=== PATIENT | female | born 1980 | race Caucasian/White ===

== ENCOUNTER → 2022-05-21 11:46 | Outpatient (BNVA) | payer MEDICAID, SELFPAY | PROVIDERS: Visit Provider Nurse Practitioner Family | DX: J02.8 Acute pharyngitis due to other specified organisms (principal); B96.89 Other specified bacterial agents as the cause of diseases classified elsewhere | CPT/HCPCS: 87071; 87880 ==

== ENCOUNTER → 2022-07-02 15:38 | Outpatient (BNVA) | payer MEDICAID, SELFPAY | PROVIDERS: Visit Provider Family Medicine | DX: R53.83 Other fatigue (principal); E61.1 Iron deficiency; Z13.6 Encounter for screening for cardiovascular disorders; G47.10 Hypersomnia, unspecified; R06.83 Snoring | CPT/HCPCS: 80053; 80061; 83540; 84443; 85025 ==

== ENCOUNTER 2022-07-23 10:11 | Outpatient (CLI) | payer MEDICAID, SELFPAY ==
--- NOTE | 2022-07-23 10:30 | FL_ITS ---
WS: [id number] MODIFIED BARIUM SWALLOW HISTORY: R13.10 - Dysphagia, unspecified FLUOROSCOPY TIME: 1min [id number] # of spot films: [id number] Modified barium swallow was performed by the speech pathologist. Fluoroscopy was provided with the pa tient in a lateral projection. Multiple food consistencies were provided. Patient swallowed all food consistencies without difficulty. No aspiration or laryngeal penetration i s evident. There is mild delay in initiation of swallowing. No significant pharyngeal coating. The ba rium tablet was swallowed without difficulty. FL/FL barium swallow modifd 20023 IMPRESSION: 1. No aspiration or laryngeal penetration. 2. Very slight delay initiating swallowing mechanism. Please see speech therapist report also for recommendations.
== END 2022-07-23 10:12 | disposition home or self-care (01) ==
PROVIDERS: PCP Family Medicine; Visit Provider Family Medicine
DX: R13.10 Dysphagia, unspecified (principal); K21.9 Gastro-esophageal reflux disease without esophagitis
CPT/HCPCS: 74230; 92611

== ENCOUNTER 2022-10-10 20:00 | Outpatient (CLI) | payer MEDICAID, SELFPAY | END 2022-10-10 20:01 | disposition home or self-care (01) | LOC: SLEEP 10-11 06:13 | PROVIDERS: PCP Family Medicine; Visit Provider Family Medicine | DX: G47.10 Hypersomnia, unspecified (principal); R06.83 Snoring | CPT/HCPCS: 95810 ==

== ENCOUNTER 2022-10-25 09:18 | Day surgery (SDC) | payer MEDICAID, SELFPAY ==
[2022-10-24 08:51] VITALS: BMI 24.9
[2022-10-25 09:35] VITALS: BP 108/55; PULSE 66; RESP 16; TEMP 36.3; O2SAT 98
[2022-10-25] MEDS: sodium chloride 0.9% 1,000 ML 30 ML IV (09:41)
[2022-10-25 09:46] LABS: OR HCG Qualitative Urine Negative (Negative)
--- NOTE | 2022-10-25 10:23 | W.PM.OPSUD ---
Surgery/Procedure H&P Update DATE OF PROCEDURE: October 25, 2022 DATE H&P PERFORMED: 10/07/22 H&P UPDATE INFORMATION: I have reviewed H&P completed within last 30 days, I have examined patient prior to procedure, No changes to prior documentation and H&P is in [facility] on date indicated PLANNED PROCEDURE: Operation Date: 10/25/22 10:20 Proposed Procedures p EGD 52634,R13.10,K21.9(Not Applicable) - Richard Weaver MD
--- NOTE | 2022-10-25 10:26 | ANES.PREANE2 ---
Pre-Anesthetic Assessment Height/Weight: Height 1.63 m Weight 65.771 kg Temp Pulse Resp BP Pulse Ox O2 Del Method 97.3 F L 66 16 108/55 98 Room Air 10/25/22 09:35 10/25/22 09:35 10/25/22 09:35 10/25/22 09:35 10/25/22 09:35 10/25/22 09:35 Operation Date: 10/25/22 10:20 Proposed Procedures p EGD 69174,R13.10,K21.9(Not Applicable) - Richard Weaver MD Was Beta Marybel taken within 24 hours: N/A Was Clonidine taken within 24 hours: N/A Last intake: Intake Last Liquid Date 10/24/22 Last Liquid Time 22:00 Last Solid Date 10/24/22 Last Solid Time 21:00 Social No alcohol and No tobacco Exam alert and oriented x 3 Airway Submandibular: within normal limits Cervical ROM: within normal limits Mallampati: Class II Dentition: chipped Comments: Comments: front incisor History/ROS No significant history except as noted Pulmonary None reported CV/HEM None reported None reported Hepatic None reported GI Gastroesophageal Reflux Disease Metabolic None reported Musc/skel None reported Neuropsych Anxiety and Depression Anesthetic Plan ASA status: 2 Anesthesia: Anesthesia Evaluation and MAC Risk of > 500 ml blood loss (7ml/kg in children): No Medications/Allergies Home Medications Medication Instructions Recorded Confirmed Last Taken Type dextroamphetamine-amphetamine 10 10 mg PO BID 30 days #60 tabs 10/22/22 10/25/22 10/24/22 Rx mg tablet (Adderall) duloxetine 30 mg capsule,delayed 30 mg PO DAILY 30 days #30 caps 10/22/22 10/25/22 10/24/22 Rx release duloxetine 60 mg capsule,delayed 60 mg PO DAILY 30 days #30 caps 10/22/22 10/25/22 10/24/22 Rx release zolpidem 5 mg tablet 5 mg PO .qhs 30 days #30 tabs 10/22/22 10/25/22 10/24/22 Rx Allergy Relief (cetirizine) 10 mg PO DAILY 10/24/22 10/25/22 10/24/22 History Allergies Allergy/AdvReac Type Severity Reaction Status Date / Time No Known Allergies Allergy Verified 10/25/22 09:28 Current Medications Generic Name Dose Route Start Last Admin Trade Name Freq PRN Reason Stop Dose Admin Sodium Chloride 1,000 mls @ 30 mls/hr 10/25/22 09:30 10/25/22 09:41 Sodium Chloride 0.9% IV 30 mls/hr .Q24H HOLLIS Administration PFSH Anesthesia Medical History (Updated 10/22/22 @ 08:36 by Hortensia Atkins MD) Insomnia Psychiatric care Surgical History (Updated 10/15/22 @ 13:49 by Farnaz Bower MD) Hx of section Hx of spinal fusion Family History Father Cancer prostate, skin, luekemia Hypertension Sister Clotting disorder lupus Stroke Denies family history of Diabetes Chronic kidney disease (CKD) Bleeding disorder Thyroid disease Female Reproductive History Date of last menstrual period: 10/20/22 Data Anesthesia Cardiac Studies: No Data to Display
[2022-10-25 11:00] VITALS: BP 95/63; PULSE 87; RESP 16; TEMP 36.1; O2SAT 97
[2022-10-25 11:31] VITALS: BP 97/62; PULSE 84; RESP 18; O2SAT 99
--- NOTE | 2022-10-25 15:08 | ANE.PACU2 ---
Inpatient post-anesthesia follow up: Airway intact: Yes Vital signs: Temperature 97.0 F Pulse Rate 84 Respiratory Rate 18 Blood Pressure 97/62 Pulse Oximetry 99 Oxygen Delivery Me thod Room Air Oxygen Flow Rate Fraction of Inspir ed Oxygen Hydration adequate: Yes Nausea and vomiting: No Pain level: 1 Mental status: Baseline
== END 2022-10-25 11:37 | disposition home or self-care (01) ==
PROVIDERS: Anesthesiology; PCP Family Medicine; Visit Provider Surgery
PROC: 0DJ08ZZ Inspection of Upper Intestinal Tract, Via Natural or Artificial Opening Endoscopic (ICD-10-PCS; CPT 43235; principal; 2022-10-25 10:20)
DX: K21.9 Gastro-esophageal reflux disease without esophagitis (principal); R13.10 Dysphagia, unspecified; K29.70 Gastritis, unspecified, without bleeding; F41.9 Anxiety disorder, unspecified; F32.A Depression, unspecified
CPT/HCPCS: 43239; 81025; 84703; 88305; 88342; J2704; J7030

== ENCOUNTER → 2023-07-16 17:56 | Outpatient (BNVA) | payer MEDICAID, SELFPAY | PROVIDERS: PCP Family Medicine; Visit Provider Family Medicine | DX: E78.00 Pure hypercholesterolemia, unspecified (principal); Z51.81 Encounter for therapeutic drug level monitoring; Z72.51 High risk heterosexual behavior | CPT/HCPCS: 81025 ==

== ENCOUNTER → 2023-12-02 11:27 | Outpatient (BNVA) | payer MEDICAID, SELFPAY | PROVIDERS: PCP Family Medicine; Visit Provider Family Medicine | DX: Z12.4 Encounter for screening for malignant neoplasm of cervix (principal) | CPT/HCPCS: 87624 ==

== ENCOUNTER → 2024-04-27 07:42 | Outpatient (BNVA) | payer MEDICAID, SELFPAY | PROVIDERS: PCP Family Medicine; Visit Provider Nurse Practitioner | DX: R30.0 Dysuria (principal); N39.0 Urinary tract infection, site not specified | CPT/HCPCS: 81000; 87086 ==

== ENCOUNTER → 2024-05-05 13:50 | Outpatient (BNVA) | payer MEDICAID, SELFPAY | PROVIDERS: PCP Family Medicine; Visit Provider Family Medicine | DX: R30.0 Dysuria (principal); R53.83 Other fatigue; Z13.1 Encounter for screening for diabetes mellitus; Z13.220 Encounter for screening for lipoid disorders | CPT/HCPCS: 80053; 80061; 81000; 84443; 85025 ==

== ENCOUNTER → 2024-12-27 15:42 | Outpatient (BNVA) | payer MEDICAID, SELFPAY | PROVIDERS: PCP Family Medicine; Visit Provider Nurse Practitioner | DX: R05.9 Cough, unspecified (principal) | CPT/HCPCS: 87400; 87426 ==